=== PATIENT | male | born 1955 | race Caucasian/White ===

== ENCOUNTER 2017-07-18 13:51 | Inpatient (IN) | payer OTHER, MEDICARE ==
[~2017-07-18] VITALS: Ht 182.9 cm; Wt 95.3 kg
[~2017-07-18 13:51] MED LIST: DILAUDID4 MG PO; GOOD SENSE ASP325 MG PO; PERCOCET 325 MG1 TA3 PO; TESTOSTERO TOP; VITAMIN D32000 I1 PO; XARELTO20 MG PO; ZANTAC 150MG150 MG PO; ZOCOR 40MG TAB40 MG PO; ZYRTEC ALLERGY10 MG PO
--- NOTE | 2017-07-18 16:15 | ED GI/GU/ABDOMINAL COMPLAINT ---
History of Present Illness General Chief Complaint: Abdominal Pain/Flank Pain Stated Complaint: C/O ABD PAIN +N Source: patient Exam Limitations: no limitations Vital Signs & Intake/Output Vital Signs & Intake/Output Vital Signs Date Time Temp Pulse Resp B/P B/P Pulse O2 O2 Flow FiO2 Mean Ox Delivery Rate 07/18 1952 99.5 78 20 129/87 96 Room Air 07/18 1900 Room Air Room Air 07/18 1357 97.0 78 18 127/83 98 Room Air Room Air Allergies Coded Allergies: NO KNOWN ALLERGIES (08/07/15) Reconcile Medications Aspirin (Ecotrin*) 325 MG TABLET.DR 1 TAB PO DAILY HEART/BLOOD (Reported) Cetirizine HCl (Zyrtec) 10 MG CAPSULE 1 CAP PO DAILY SUPPLEMENT (Reported) Cholecalciferol (Vitamin D3) (Vitamin D) (Unknown Strength) TABLET (Unknown Dose) PO DAILY SUPPLEMENT (Reported) Ranitidine (Ranitidine HCl) (Unknown Strength) TABLET (Unknown Dose) PO DAILY GI (Reported) Simvastatin (Zocor*) (Unknown Strength) TABLET (Unknown Dose) PO QPM CHOLESTEROL (Reported) Testosterone (Testim) 50 MG/5 GRAM (1 %) GEL..GRAM. 1 ENOC TOP DAILY HRT ( Reported) Triage Note: PT TO ED WITH C/O MID ABD PAIN "A LITTLE BIT TO THE RIGHT SIDE". NAUSEA, NOT EATING SOLIDS, TAKING PO FLUIDS. Triage Nurses Notes Reviewed? yes Onset: Abrupt Duration: day(s): (5) Timing: recent history Location: right lower quadrant Radiation: no radiation Activities at Onset: none Associated Symptoms: abdominal pain, nausea/vomiting HPI: This is a 62-year-old male with history of previous stroke, left-sided deficit or with chief complaint of abdominal pain nausea and vomiting for the past 4-5 days, worse the last 2 days. He states he is unable to tolerate water. He has not been eating anything last movement was 5 days ago. No history of similar symptoms. Had a left inguinal hernia as a child, no other abdominal surgeries. Denies any fever or chills. (Noelle ROBLES,Annie) Past History Travel History Traveled to [place] past 21 day No Medical History Any Pertinent Medical History? see below for history Neurological: CVA EENT: NONE Cardiovascular: hyperlipidemia Respiratory: NONE Gastrointestinal: NONE Hepatic: NONE Renal: NONE Musculoskeletal: rheumatoid arthritis Psychiatric: NONE Endocrine: NONE Blood Disorders: NONE Cancer(s): NONE Surgical History Surgical History: LEFT INGUINAL HERNIA Psychosocial History Who do you live with Mother Services at Home None What is your primary language German Tobacco Use: Quit >30 days ago ETOH Use: occasional use Illicit Drug Use: denies illicit drug use Family History Hx Contributory? No (Annie Drake MD) Review of Systems Review of Systems Constitutional: Denies: chills, fever. EENTM: Reports: no symptoms. Respiratory: Denies: cough, short of breath. Cardiovascular: Denies: chest pain, palpitations. GI: Reports: abdominal pain, bloating, constipation, nausea, vomiting. Genitourinary: Denies: discharge, dysuria, frequency, hematuria. Musculoskeletal: Denies: back pain. Skin: Reports: no symptoms. Neurological/Psychological: Reports: no symptoms. Hematologic/Endocrine: Denies: bruising, bleeding, polyuria, polydipsia. Immunologic/Allergic: Denies: splenectomy. All Other Systems: Reviewed and Negative (Annie Drake MD) Physical Exam Physical Exam General Appearance: well developed/nourished, alert, awake, anxious, mild distress, moderate distress, obese Head: atraumatic, normal appearance Eyes: Bilateral: normal appearance, PERRL, EOMI. Ears, Nose, Throat, Mouth: hearing grossly normal, moist mucous membrane Neck: normal inspection, supple, full range of motion Respiratory: normal breath sounds, chest non-tender, no respiratory distress Cardiovascular: regular rate/rhythm, normal peripheral pulses Peripheral Pulses: 2+ radial (R), 2+ radial (L) Gastrointestinal: soft, DISTENDED, TENDER RLQ, RUQ, NO REBOUND OR GUARDING Back: normal inspection, normal range of motion Extremities: normal range of motion Neurologic/Psych: no motor/sensory deficits, awake, alert, oriented x 3 Core Measures ACS in differential dx? No Sepsis Present: No Sepsis Focused Exam Completed? No (Annie Drake MD) Progress Differential Diagnosis: appendicitis, bowel obstruction, colon cancer, diverticulitis, ureterolithiasis Plan of Care: Orders Procedure Date/time Status Nothing by Mouth 07/19 B Active Pathway - chart 07/18 1944 Active Code Status 07/18 1944 Active Patient Data 07/18 1936 Active Admit to inpatient 07/18 1935 Active NGT 07/18 1847 Active EKG 07/18 1847 Active Add-on Test (ER Only) 07/18 1648 Active Add-on Test (ER Only) 07/18 1632 Active URINALYSIS 07/18 1452 Complete PARTIAL THROMBOPLASTIN TIME 07/18 1452 Complete PROTHROMBIN TIME 07/18 1452 Complete LIPASE 07/18 1452 Complete ETHANOL 07/18 1452 Complete COMPREHENSIVE METABOLIC PANEL 07/18 1452 Complete CBC WITHOUT DIFFERENTIAL 07/18 145 Complete AMYLASE 07/18 1452 Complete VTE Mechanical Prophylaxis 07/18 UNK Active Vital Signs 07/18 UNK Active Intake & Output 07/18 UNK Active Current Medications Sig/Ute Start time Last Medication Dose Stop Time Status Admin Heparin Sodium 5,000 UNIT Q8 07/18 2199 UNVr (Porcine) Morphine Sulfate 4 MG Q4 HRS NEEDED PRN 07/18 1944 UNVr (Morphine) Ondansetron HCl 4 MG Q8P PRN 07/18 1944 UNVr (Zofran) Pantoprazole Sodium 40 MG DAILY 07/18 1944 UNVr 07/18 (Protonix) 2000 Sodium Chloride 1,000 ML .Q10H 07/18 1944 UNVr 07/18 (Normal Saline 0.9%) 1999 Laboratory Tests 07/18/17 1950: Urine Color YEL, Urine Clarity CLEAR, Urine pH 6.0, Ur Specific [place] 1.010, Urine Protein NEG, Urine Ketones 15 H, Urine Nitrite NEG, Urine Bilirubin NEG, Urine Urobilinogen 1.0, Ur Leukocyte Esterase NEG, Ur Microscopic EXAM NOT REQUIRED, Urine Hemoglobin NEG, Urine Glucose NEG 07/18/17 1630: Anion Gap 18 H, Estimated GFR > 60, BUN/Creatinine Ratio 14.0, Glucose 96, Calcium 10.2, Total Bilirubin 1.1, AST 35, ALT 63, Alkaline Phosphatase 61, Total Protein 7.3, Albumin 4.7, Globulin 2.6, Albumin/Globulin Ratio 1.8, Amylase 63, Lipase 64, PT 11.7, INR 1.12, APTT 27, CBC w Diff NO MAN DIFF REQ, RBC 5.30, MCV 93.5, MCH 30.9, RDW 13.9, MPV 8.9, Gran % 78.8 H, Lymphocytes % 11.6 L, Monocytes % 9.2, Eosinophils % 0.1, Basophils % 0.3, Absolute Granulocytes 8.7 H, Absolute Lymphocytes 1.3, Absolute Monocytes 1.0 H, Absolute Eosinophils 0, Absolute Basophils 0, PUBS MCHC 33.0, Serum Alcohol < 10.0 6:[address] SHOWS HIGH GRADE SBO, SURGERY PAGED, NGT ORDERED. 6:58 PM D/W DR ANGLIN AND SURGICAL PA, TO EVALUATE PATIENT IN ED. CT RESULTS D/W PATIENT. Diagnostic Imaging: Viewed by Me: CT Scan. Discussed w/RAD: CT Scan. Radiology Impression: PATIENT: MIRYAM MCCARTY PRESENT AGE: 62 PATIENT ACCOUNT NO: [id number] : 57 LOCATION: [facility] ORDERING PHYSICIAN: Annie Drake MD SERVICE DATE: 07/18/17 EXAM TYPE: CAT - CT ABD & PELVIS W IV CONTRAST EXAMINATION: CT ABDOMEN AND PELVIS WITH CONTRAST CLINICAL INFORMATION: Abdominal pain. Vomiting. COMPARISON: None TECHNIQUE: Multidetector volumetric imaging was performed of the abdomen and pelvis following IV administration of 95 mL of Optiray 320 intravenous contrast. Coronal and sagittal reformatted images performed at CT scanner DLP: 851.7 mGy- cm FINDINGS: LUNG BASES: Linear scarring at right lung base posteriorly. LIVER, GALLBLADDER, AND BILIARY TREE: The liver is normal in size, shape, and attenuation. No focal hepatic lesion or biliary ductal dilatation is present. Multiple small gallstones layering dependently in the gallbladder. No bile duct dilatation. No edema around the gallbladder. PANCREAS: Pancreas is mildly atrophic. No inflammation or mass. No pancreatic duct dilatation. SPLEEN: Small splenule at the anterior inferior splenic margin. ADRENAL GLANDS: Unremarkable. KIDNEYS AND URETERS: The kidneys are normal in size, shape, and attenuation. No hydronephrosis, hydroureter, or calculi seen. No perinephric stranding. BLADDER: Unremarkable. GASTROINTESTINAL TRACT: There is dilatation of the proximal small bowel loops and the distal small bowel loops are decompressed. This is a small bowel obstruction. The transition point is in the right upper quadrant. No edema of the bowel wall. The large bowel are decompressed. There are a few diverticula of the colon but no diverticulitis. ABDOMINAL WALL: No significant hernia is appreciated. LYMPH NODES: Normal. VASCULAR: Unremarkable. PELVIC VISCERA: Prostate measures 4.6 cm transverse. OSSEOUS STRUCTURES: Unremarkable. IMPRESSION: 1. High-grade small bowel obstruction with transition point right upper quadrant. 2. Cholelithiasis. DICTATED BY: Junior Tlaamantes MD DATE/TIME DICTATED:07/18/171754 PATTERN REPAIR PERSON:AUDREY DATE/TIME TRANSCRIBED:1754 CONFIDENTIAL, DO NOT COPY WITHOUT APPROPRIATE AUTHORIZATION. < Electronically signed in Other Vendor System> SIGNED BY: Junior Talamantes MD 1816 Initial ED EKG: none Hand-Off Endorsed To: Ac Reilly MD Endorsed Time: 1899 Pending: consult (SURGERY) (Annie Drake MD) Departure Departure Disposition: STILL A PATIENT Condition: Stable Clinical Impression Primary Impression: SBO (small bowel obstruction) Referrals: Matt ROBLES,Modesto Harrison (PCP/Family) Departure Forms: Customer Survey General Discharge Information (Annie Drake MD) Admission Note Spoke With: Judah ROBLES,Aj Leahy Documentation of Exam: Documentation of any treatments & extenuating circumstances including Concerns Regarding Discharge (functional status, medication knowledge or non-compliance, living conditions, etc.) that warrant an admission rather than observation: NGT surgical management NPO IVF IV analgesia IV antiemetic medication adjustment continuing care discharge planning (Ac Reilly MD)
[2017-07-18 17:02] LABS: ABSOLUTE BASOPHIL COUNT 0 /CUMM (0.0-0.2); ABSOLUTE EOSINOPHIL COUNT 0 /CUMM (0.0-0.7); ABSOLUTE GRANULOCYTE CT 8.7 /CUMM (1.4-6.5); ABSOLUTE LYMPH COUNT 1.3 /CUMM (1.2-3.4); BASOPHIL % 0.3 % (0.0-2.0); EOSINOPHIL % 0.1 % (0-5); GRANULOCYTE % 78.8 % (42.2-75.2); HEMATOCRIT 49.6 % (42-52); MEAN CORPUSCULAR HGB 30.9 PG (27.0-31.0); MEAN CORPUSCULAR VOLUME 93.5 FL (80.0-94.0); MEAN PLATELET VOLUME 8.9 FL (7.4-10.4); PLATELET COUNT 248 /CUMM (130-400); RBC DISTRIBUTION WIDTH 13.9 % (11.5-14.5); WHITE BLOOD CELL COUNT 11.1 /CUMM (4.8-10.8)
[2017-07-18 17:29] LABS: PT 11.7 SEC (9.4-12.5); PTT 27 SEC (25-37)
[2017-07-18] MEDS ORDERED: RANITIDINE HCL150 MG PO (17:34)
[2017-07-18] MEDS ORDERED: ASPIRIN EC325 M2 PO (17:34)
[2017-07-18] MEDS ORDERED: TESTIM5 GM TOP (17:35)
[2017-07-18] MEDS ORDERED: VITAMIN D1000 UNIT PO (17:35)
[2017-07-18] MEDS ORDERED: ZYRTEC10 M6 PO (17:35)
[2017-07-18] MEDS ORDERED: ZOCOR20 M1 PO (17:36)
--- NOTE | 2017-07-18 18:17 | CT SCAN REPORT ---
EXAMINATION: CT ABDOMEN AND PELVIS WITH CONTRAST CLINICAL INFORMATION: Abdominal pain. Vomiting. COMPARISON: None TECHNIQUE: Multidetector volumetric imaging was performed of the abdomen and pelvis following IV administration of 95 mL of Optiray 320 intravenous contrast. Coronal and sagittal reformatted images performed at CT scanner DLP: 851.7 mGy-cm FINDINGS: LUNG BASES: Linear scarring at right lung base posteriorly. LIVER, GALLBLADDER, AND BILIARY TREE: The liver is normal in size, shape, and attenuation. No focal hepatic lesion or biliary ductal dilatation is present. Multiple small gallstones layering dependently in the gallbladder. No bile duct dilatation. No edema around the gallbladder. PANCREAS: Pancreas is mildly atrophic. No inflammation or mass. No pancreatic duct dilatation. SPLEEN: Small splenule at the anterior inferior splenic margin. ADRENAL GLANDS: Unremarkable. KIDNEYS AND URETERS: The kidneys are normal in size, shape, and attenuation. No hydronephrosis, hydroureter, or calculi seen. No perinephric stranding. BLADDER: Unremarkable. GASTROINTESTINAL TRACT: There is dilatation of the proximal small bowel loops and the distal small bowel loops are decompressed. This is a small bowel obstruction. The transition point is in the right upper quadrant. No edema of the bowel wall. The large bowel are decompressed. There are a few diverticula of the colon but no diverticulitis. ABDOMINAL WALL: No significant hernia is appreciated. LYMPH NODES: Normal. VASCULAR: Unremarkable. PELVIC VISCERA: Prostate measures 4.6 cm transverse. OSSEOUS STRUCTURES: Unremarkable. IMPRESSION: 1. High-grade small bowel obstruction with transition point right upper quadrant. 2. Cholelithiasis.
--- NOTE | 2017-07-18 19:39 | Admission Core Measures ---
Acute Coronary Syndrome (CM) ACS Core Measures Acute Coronary Syndrome Diagnosis No Congestive Heart Failure (NEW) CHF Core Measures Congestive Heart Failure Diagnosis No Cerebrovascular Accident (NEW) CVA Core Measures CVA/TIA Diagnosis No Venous Thromboembolism VTE Core Giovanna (View Protocol) VTE Risk Factors Immobility No Mechanical VTE Prophylaxis d/t N/A MechProphylax Ordered No VTE Pharm Prophylaxis d/t NA PharmProphylax ordered Problem List As ranked by this Provider includes Assessment & Plan 1. SBO (small bowel obstruction) HOME MEDS Home Med List Aspirin (Ecotrin*) 325 MG TABLET.DR 1 TAB PO DAILY HEART/BLOOD (Reported) Cetirizine HCl (Zyrtec) 10 MG CAPSULE 1 CAP PO DAILY SUPPLEMENT (Reported) Cholecalciferol (Vitamin D3) (Vitamin D) (Unknown Strength) TABLET (Unknown Dose) PO DAILY SUPPLEMENT (Reported) Ranitidine (Ranitidine HCl) (Unknown Strength) TABLET (Unknown Dose) PO DAILY GI (Reported) Simvastatin (Zocor*) (Unknown Strength) TABLET (Unknown Dose) PO QPM CHOLESTEROL (Reported) Testosterone (Testim) 50 MG/5 GRAM (1 %) GEL..GRAM. 1 ENOC TOP DAILY HRT ( Reported)
--- NOTE | 2017-07-18 20:38 | History & Physical ---
Anthony Regan 07/18/172024: General Information and HPI MD Statement: I have seen and personally examined MIRYAM MCCARTY and documented this H&P. The patient is a 62 year old M who presented with a patient stated chief complaint of [abdominal pain]. Source of Information: patient, family Exam Limitations: no limitations History of Present Illness: Mr. 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 He denies fever chills at home and states that prior to the onset of the symptoms has never complained of abdominal pain to this severity. CAT scan taken today demonstrates high-grade small bowel obstruction in right upper quadrant with no evidence of free air. He has no urinary complaints and his last bowel movement was yesterday and was loose. Allergies/Medications Allergies: Coded Allergies: NO KNOWN ALLERGIES (08/07/15) Home Med list Aspirin (Ecotrin*) 325 MG TABLET.DR 1 TAB PO DAILY HEART/BLOOD (Reported) Cetirizine HCl (Zyrtec) 10 MG CAPSULE 1 CAP PO DAILY SUPPLEMENT (Reported) Cholecalciferol (Vitamin D3) (Vitamin D) (Unknown Strength) TABLET (Unknown Dose) PO DAILY SUPPLEMENT (Reported) Ranitidine (Ranitidine HCl) (Unknown Strength) TABLET (Unknown Dose) PO DAILY GI (Reported) Simvastatin (Zocor*) (Unknown Strength) TABLET (Unknown Dose) PO QPM CHOLESTEROL (Reported) Testosterone (Testim) 50 MG/5 GRAM (1 %) GEL..GRAM. 1 ENOC TOP DAILY HRT ( Reported) Past History Travel History Traveled to [place] past 21 day No Medical History Neurological: CVA EENT: NONE Cardiovascular: hyperlipidemia Respiratory: NONE Gastrointestinal: NONE Hepatic: NONE Renal: NONE Musculoskeletal: rheumatoid arthritis Psychiatric: NONE Endocrine: NONE Blood Disorders: NONE Cancer(s): NONE Surgical History Surgical History: LEFT INGUINAL HERNIA Past Family/Social History Psychosocial History Services at Home: None ETOH Use: occasional use Illicit Drug Use: denies illicit drug use Review of Systems Review of Systems Constitutional: Denies: no symptoms, see HPI, chills, diaphoresis, fever, malaise, weakness, unexplained weight loss. Exam & Diagnostic Data Last 24 Hrs of Vital Signs/I&O Vital Signs Date Time Temp Pulse Resp B/P B/P Pulse O2 O2 Flow FiO2 Mean Ox Delivery Rate 07/18 1952 99.5 78 20 129/87 96 Room Air 07/18 1900 Room Air Room Air 07/18 1357 97.0 78 18 127/83 98 Room Air Room Air Intake & Output 07/18 1600 07/18 0800 07/18 0000 Intake Total Output Total Balance Patient 210 lb Weight Weight Reported by Patient Measurement Method Physical Exam General Appearance Alert, Oriented X3, Cooperative HEENT PERRLA Cardiovascular Regular Rate, Normal S1, Normal S2 Lungs Clear to Auscultation, Normal Air Movement Abdomen abdomen softly distended, tenderness to right upper quadrant to palpation, no evidence of peritonitis, no guarding to palpation. Last 24 Hrs of Labs/Candelario: Laboratory Tests 07/18/17 1950: Urine Color YEL, Urine Clarity CLEAR, Urine pH 6.0, Ur Specific [place] 1.010, Urine Protein NEG, Urine Ketones 15 H, Urine Nitrite NEG, Urine Bilirubin NEG, Urine Urobilinogen 1.0, Ur Leukocyte Esterase NEG, Ur Microscopic EXAM NOT REQUIRED, Urine Hemoglobin NEG, Urine Glucose NEG 07/18/17 1630: Anion Gap 18 H, Estimated GFR > 60, BUN/Creatinine Ratio 14.0, Glucose 96, Calcium 10.2, Total Bilirubin 1.1, AST 35, ALT 63, Alkaline Phosphatase 61, Total Protein 7.3, Albumin 4.7, Globulin 2.6, Albumin/Globulin Ratio 1.8, Amylase 63, Lipase 64, PT 11.7, INR 1.12, APTT 27, CBC w Diff NO MAN DIFF REQ, RBC 5.30, MCV 93.5, MCH 30.9, RDW 13.9, MPV 8.9, Gran % 78.8 H, Lymphocytes % 11.6 L, Monocytes % 9.2, Eosinophils % 0.1, Basophils % 0.3, Absolute Granulocytes 8.7 H, Absolute Lymphocytes 1.3, Absolute Monocytes 1.0 H, Absolute Eosinophils 0, Absolute Basophils 0, PUBS MCHC 33.0, Serum Alcohol < 10.0 Diagnostic Data Other Results SERVICE DATE: 07/18/17-163 EXAM TYPE: CAT - CT ABD & PELVIS W IV CONTRAST EXAMINATION: CT ABDOMEN AND PELVIS WITH CONTRAST CLINICAL INFORMATION: Abdominal pain. Vomiting. COMPARISON: None TECHNIQUE: Multidetector volumetric imaging was performed of the abdomen and pelvis following IV administration of 95 mL of Optiray 320 intravenous contrast. Coronal and sagittal reformatted images performed at CT scanner DLP: 851.7 mGy-cm FINDINGS: LUNG BASES: Linear scarring at right lung base posteriorly. LIVER, GALLBLADDER, AND BILIARY TREE: The liver is normal in size, shape, and attenuation. No focal hepatic lesion or biliary ductal dilatation is present. Multiple small gallstones layering dependently in the gallbladder. No bile duct dilatation. No edema around the gallbladder. PANCREAS: Pancreas is mildly atrophic. No inflammation or mass. No pancreatic duct dilatation. SPLEEN: Small splenule at the anterior inferior splenic margin. ADRENAL GLANDS: Unremarkable. KIDNEYS AND URETERS: The kidneys are normal in size, shape, and attenuation. No hydronephrosis, hydroureter, or calculi seen. No perinephric stranding. BLADDER: Unremarkable. GASTROINTESTINAL TRACT: There is dilatation of the proximal small bowel loops and the distal small bowel loops are decompressed. This is a small bowel obstruction. The transition point is in the right upper quadrant. No edema of the bowel wall. The large bowel are decompressed. There are a few diverticula of the colon but no diverticulitis. ABDOMINAL WALL: No significant hernia is appreciated. LYMPH NODES: Normal. VASCULAR: Unremarkable. PELVIC VISCERA: Prostate measures 4.6 cm transverse. OSSEOUS STRUCTURES: Unremarkable. IMPRESSION: 1. High-grade small bowel obstruction with transition point right upper quadrant. 2. Cholelithiasis. DICTATED BY: Junior Talamantes MD DATE/TIME DICTATED:07/18/171754 LACE AND TEXTILES RESTORER:AUDREY DATE/TIME TRANSCRIBED:07/18/171754 Assessment/Plan Assessment: Mr. Mccarty is a 62-year-old male with a three-day history of worsening abdominal pain bloating nausea and vomiting with CAT scan demonstrating high- grade small bowel obstruction. This case was discussed with Dr. So. Plan Admit to general surgery IV fluids, nothing by mouth NG tube placement now Heparin subcutaneous for DVT prophylaxis with Alps Serial abdominal exams IV PPI Dr. So will see the patient in a.m. If the patient conditions worsen he may require to be taken to the OR suite for exploration As Ranked By This Provider Problem List: 1. SBO (small bowel obstruction) Core Measures/Misc (03/25) Acute Coronary Syndrome ACS Diagnosis: No Congestive Heart Failure Congestive Heart Failure Diagnosis No Cerebrovascular Accident CVA/TIA Diagnosis: No VTE (View Protocol) VTE Risk Factors Immobility No Mechanical VTE Prophylaxis d/t N/A MechProphylax Ordered No VTE Pharm Prophylaxis d/t NA PharmProphylax ordered Sepsis (View protocol) Sepsis Present: No Aj So MD 07/19/17 1133: Attending MD Review Statement Attending Statement Attending MD Statement: examined this patient, discuss w/resident/PA/[employer] W[employer]ER, reviewed images Attending Assessment/Plan: PATIENT WITH NEW SBO WITHOUT PRIOR SURGERY TO ATTRIBUTE TO ADHESIVE DISEASE. PLAN NGT IVF AND SERIAL EXAMINATION. PLAN OPERATIVE INTERVENTION PENDING CLINICAL COURSE.
--- NOTE | 2017-07-18 20:43 | RADIOLOGY REPORT ---
EXAMINATION: CHEST 1 VIEW CLINICAL INFORMATION: Enteric tube placement. COMPARISON: Same day abdominal and pelvic CT. TECHNIQUE: An AP view of the chest is provided. FINDINGS: The cardiac silhouette is not enlarged. An enteric tube is in place. The tip terminates within the left upper quadrant, likely within the stomach. The mediastinal and hilar contours are unremarkable. There are neither pleural effusions nor pneumothoraces. There is atelectasis at the right lung base. The osseous structures are unremarkable. IMPRESSION: Enteric tube in place. Right lower lobe atelectasis.
[2017-07-19 00:18] VITALS: BP 130/86
[2017-07-19 06:15] VITALS: BP 126/82
--- NOTE | 2017-07-19 07:54 | PN- General Surgery ---
See Addendum Subjective Subjective: Pt in bed, complains of mild abdominal pain but hasnt asked for any medications since he was in the ED. Some nausea, no vomiting, NGT in place. Complains of thgroat discomfort from NGT. Denies flatus/BM. Denies CP/SOB. Voiding Objective Vital Signs and I&Os Vital Signs Date Time Temp Pulse Resp B/P B/P Pulse O2 O2 Flow FiO2 Mean Ox Delivery Rate 07/19 0615 97.4 71 20 126/82 93 Room Air 07/19 0018 98.8 77 22 130/86 96 Room Air 07/18 2254 96.8 94 18 128/74 97 Room Air 07/18 2127 97.2 95 18 125/75 94 Room Air 07/18 1953 99.5 78 20 129/87 96 Room Air 07/18 1900 Room Air Room Air 07/18 1357 97.0 78 18 127/83 98 Room Air Room Air Intake & Output 07/19 0800 07/19 0000 07/18 1600 07/18 0800 07/18 0000 07/17 1600 Intake Total 1200 Output Total 275 700 Balance -275 500 Intake, IV 1000 Intake, Oral 200 Output, 400 Gastric Drainage Output, Urine 275 300 Patient 210 lb 210 lb Weight Weight Reported by Patient Reported by Patient Measurement Method Physical Exam: gen- NAD, AAx3 resp- CTAB cardio- RRR abd- ND, +BS, soft, NT Results Last 48 Hours of Labs: Laboratory Tests 07/18 07/18 1950 1630 Chemistry Sodium (137 - 145 mmol/L) 138 Potassium (3.5 - 5.1 mmol/L) 4.2 Chloride (98 - 107 mmol/L) 95 L Carbon Dioxide (22 - 30 mmol/L) 26 Anion Gap (5 - 16) 18 H BUN (9 - 20 mg/dL) 14 Creatinine (0.7 - 1.2 mg/dL) 1.0 Estimated GFR (>60 ml/min) > 60 BUN/Creatinine Ratio (7 - 25 %) 14.0 Glucose (65 - 99 mg/dL) 96 Calcium (8.4 - 10.2 mg/dL) 10.2 Total Bilirubin (0.2 - 1.3 mg/dL) 1.1 AST (17 - 59 U/L) 35 ALT (21 - 72 U/L) 63 Alkaline Phosphatase (< 127 U/L) 61 Total Protein (6.3 - 8.2 g/dL) 7.3 Albumin (3.5 - 5.0 g/dL) 4.7 Globulin (1.9 - 4.2 gm/dL) 2.6 Albumin/Globulin Ratio (1.1 - 2.2 %) 1.8 Amylase (30 - 110 U/L) 63 Lipase (23 - 300 U/L) 64 Coagulation PT (9.4 - 12.5 SEC) 11.7 INR (0.90 - 1.17) 1.12 APTT (25 - 37 SEC) 27 Hematology CBC w Diff NO MAN DIFF REQ WBC (4.8 - 10.8 /CUMM) 11.1 H RBC (4.70 - 6.10 /CUMM) 5.30 Hgb (14.0 - 18.0 G/DL) 16.4 Hct (42 - 52 %) 49.6 MCV (80.0 - 94.0 FL) 93.5 MCH (27.0 - 31.0 PG) 30.9 RDW (11.5 - 14.5 %) 13.9 Plt Count (130 - 400 /CUMM) 248 MPV (7.4 - 10.4 FL) 8.9 Gran % (42.2 - 75.2 %) 78.8 H Lymphocytes % (20.5 - 51.1 %) 11.6 L Monocytes % (1.7 - 9.3 %) 9.2 Eosinophils % (0 - 5 %) 0.1 Basophils % (0.0 - 2.0 %) 0.3 Absolute Granulocytes (1.4 - 6.5 /CUMM) 8.7 H Absolute Lymphocytes (1.2 - 3.4 /CUMM) 1.3 Absolute Monocytes (0.10 - 0.60 /CUMM) 1.0 H Absolute Eosinophils (0.0 - 0.7 /CUMM) 0 Absolute Basophils (0.0 - 0.2 /CUMM) 0 PUBS MCHC (33.0 - 37.0 G/DL) 33.0 Toxicology Serum Alcohol (<10 MG/DL) < 10.0 Urines Urine Color (YEL,AMB,STR) YEL Urine Clarity (CLEAR) CLEAR Urine pH (5.0 - 8.0) 6.0 Ur Specific [place] (1.001 - 1.035) 1.010 Urine Protein (NEG,<30 MG/DL) NEG Urine Ketones (NEG) 15 H Urine Nitrite (NEG) NEG Urine Bilirubin (NEG) NEG Urine Urobilinogen (0.1 - 1.0 EU/dl) 1.0 Ur Leukocyte Esterase (NEG) NEG Ur Microscopic EXAM NOT REQUIRED Urine Hemoglobin (NEG) NEG Urine Glucose (N MG/DL) NEG Assessment/Plan Assessment/Plan 62yo M with SBO, awaiting return of bowel function Will increase IVF to 125ml/hr Cont antiemetics and pain medication as need DVT ppx- SQ heparin and ALPS COnt NGT NPO with ice chips for oral comfort IV PPI Encourage ambulation Core Measures Venous Thromboembolism VTE Risk Factors Immobility No Mechanical VTE Prophylaxis d/t N/A MechProphylax Ordered No VTE Pharm Prophylaxis d/t NA PharmProphylax ordered
[2017-07-19 15:10] VITALS: BP 120/78
[2017-07-19 21:54] VITALS: BP 120/88
[2017-07-20 07:06] VITALS: BP 116/82
--- NOTE | 2017-07-20 09:42 | RADIOLOGY REPORT ---
EXAMINATION: XR ABDOMEN MULTIPLE VIEWS CLINICAL INDICATION: Small bowel obstruction. COMPARISON: CT abdomen pelvis dated 07/18/2017 was reviewed. TECHNIQUE: 4 views of the abdomen. FINDINGS: There is an enteric tube overlying the stomach. Again seen are multiple dilated loops of small bowel. On the erect view several air-fluid levels are demonstrated. No free air is observed. IMPRESSION: Multiple dilated small bowel loops with air-fluid levels consistent with known small bowel obstruction.
--- NOTE | 2017-07-20 10:50 | PN- General Surgery ---
Subjective Subjective: No overnight improvement reported. Patient still continues to c/o abdominal pain , diffuse. Has NGT in place, finds it uncomfortable but notes decrease in nausea. Denies flatus. Has not been OOB today. Denies chest pain, shortness of breath and difficulty breathing. Objective Vital Signs and I&Os Vital Signs Date Time Temp Pulse Resp B/P B/P Pulse O2 O2 Flow FiO2 Mean Ox Delivery Rate 07/20 0706 98.2 72 18 116/82 93 Room Air 07/19 2154 98.4 64 18 120/88 95 Room Air 07/19 1510 98.5 70 18 120/78 95 Room Air Intake & Output 07/20 1600 07/20 0800 07/20 0000 07/19 1600 07/19 0800 07/19 0000 Intake Total 2817 403 5330 800 1200 Output Total 775 1075 500 575 700 Balance 225 -575 1090 225 500 Intake, IV 1000 500 951 277 5653 Intake, Oral 0 0 840 200 Number 0 0 Bowel Movements Output, 375 675 300 400 Gastric Drainage Output, Urine 400 400 500 275 300 Patient 210 lb Weight Weight Reported by Patient Measurement Method Physical Exam: General: Alert and oriented x3, no acute distress Cardiac: RRR, s1s2 Pulm: CTA bilaterally, non-labored respiratory effort Abdomen: Distended, softly. Diffuse tenderness with palpation. +bs auscultated, no passage of flatus Extremities: Left sided weakness, not new. Moves right side, distal sensations intact. Skin warm and well perfused. DP pulses palpable. Calves soft, non- tender bialterally Assessment/Plan Assessment/Plan This is a 62 year old male, hospital day 2, admitted for sbo. Has been npo with ngt. No improvement noted. Multiview reviewed, still shows sbo. -Continue npo, ngt -Continue IV hydration -Plan for OR this afternoon for diagnostic laparoscopy with lysis of adhesions -Discussed with Dr. So and patient Core Measures Venous Thromboembolism VTE Risk Factors Immobility No Mechanical VTE Prophylaxis d/t N/A MechProphylax Ordered No VTE Pharm Prophylaxis d/t NA PharmProphylax ordered
--- NOTE | 2017-07-20 14:53 | Operative Report ---
Operative/Inv Procedure Report Surgery Date: 07/20/17 Name of Procedure: Laparoscopic lysis of adhesions Pre-Operative Diagnosis: Intestinal obstruction Post-Operative Diagnosis: Same Estimated Blood Loss: scant Surgeon/Tactical Deception Plans Officer: Judah ROBLES,Aj Leahy Anesthesia: general endotracheal tube Operative Indication: 62-year-old male resents with intestinal obstruction. He has no history of prior abdominal surgery Operative/Procedure Note Note: Patient brought to the abdomen supine. General anesthesia was obtained and his abdomen was prepped and draped. Skin above the umbilicus local anesthesia transverse incision made sharply. We dissected out the fascia and grasp it with Avni's. Fascia was incised sharply and stay sutures placed. A blunt Willoughby port was placed. Pneumoperitoneum was achieved. 2, 5 mm ports were placed in the suprapubic region and left lower quadrant after local anesthesia and under direct vision. We began by finding the cecum. The terminal ileal loops were normal in caliber. There is obvious markedly distended proximal small bowel loops. We ran the small bowel from the terminal ileum proximally. We came to the area where there is inflamed bowel that was mildly dilated but no discrete transition point. It is difficult the bowel further this way due to the distention of the intestine. We therefore went superiorly and identified the omentum. Reflected it superiorly to find the ligament of Treitz. In doing so we found an adhesive band of omentum to the retroperitoneum. This band was divided with cautery. We then identified the ligament of Treitz and ran the small bowel distally. Papillary through, there was a discrete transition site seen. There is what appeared to be bandlike compression had been released. There is no intraluminal mass. I ran the small bowel once more from distal to proximal and found the same transition point. At this point we concluded the operation. Ports removed. The fascia was closed with 0 Vicryl suture. Skin incisions were closed with 4-0 Vicryl. Steri-Strips and sterile dressing applied. Sponge needle counts are correct Findings: Solitary adhesive band CC: Matt ROBLES,Modesto Harrison
[2017-07-20 17:20] VITALS: BP 126/82
--- NOTE | 2017-07-20 17:33 | PN- Student ---
Yunier Owens 07/20/17 1722: Subjective Subjective: Pt is a 62yo male post op day 0 s/p BROOKLYNN r/t SBO. He does not have any complaints at this time and states his pain is 0/10 at this time although he states he has minimal throat discomfort 2/2 extubation. No BM/ No Flatus/ No urination at this time. Pt denies: H/A, vision changes, SOB, chest pain, N/V/D, paresthesias (hx of L sided HTN stroke) or syncope. Pt does not have any questions or complaints at this time. Objective Objective: GENERAL: Pt lying supine in bed comfortably. NG tube with low wall suction in place. IVF in place. Antonio catheter removed in OR. RESP: Fair respiratory effort- PT complaining of sore throat r/t extubation. CTAB CARDIO: RRR, no M/R/G, S1 and S2 audible. ABD: Dressing clean, dry and intact. Soft, mild tenderness on palpation throughout. Diminished active bowel sounds heard in all 4 quadrants. MUSC: Denies pain/paresthesias. No edema noted. NEURO: Pt is playful during exam but A+Ox4. Making moravian references throughout the interview, pt is optomistic of his future care. Results Results: Laboratory Tests 07/20/17 0753: Anion Gap 16, Estimated GFR > 60, BUN/Creatinine Ratio 15.6 07/18/17 1950: Urine Color YEL, Urine Clarity CLEAR, Urine pH 6.0, Ur Specific [place] 1.010, Urine Protein NEG, Urine Ketones 15 H, Urine Nitrite NEG, Urine Bilirubin NEG, Urine Urobilinogen 1.0, Ur Leukocyte Esterase NEG, Ur Microscopic EXAM NOT REQUIRED, Urine Hemoglobin NEG, Urine Glucose NEG 07/18/17 1630: Anion Gap 18 H, Estimated GFR > 60, BUN/Creatinine Ratio 14.0, Glucose 96, Calcium 10.2, Total Bilirubin 1.1, AST 35, ALT 63, Alkaline Phosphatase 61, Total Protein 7.3, Albumin 4.7, Globulin 2.6, Albumin/Globulin Ratio 1.8, Amylase 63, Lipase 64, PT 11.7, INR 1.12, APTT 27, CBC w Diff NO MAN DIFF REQ, RBC 5.30, MCV 93.5, MCH 30.9, RDW 13.9, MPV 8.9, Gran % 78.8 H, Lymphocytes % 11.6 L, Monocytes % 9.2, Eosinophils % 0.1, Basophils % 0.3, Absolute Granulocytes 8.7 H, Absolute Lymphocytes 1.3, Absolute Monocytes 1.0 H, Absolute Eosinophils 0, Absolute Basophils 0, PUBS MCHC 33.0, Serum Alcohol < 10.0 Microbiology 07/20 1345 URINE ROUT: Urine Culture - RECD Assessment/Plan Assessment: Ted is a 62yo M post op day 0 s/p BROOK[place]NN r/t SBO. He is recovering well from his procedure and is only complaining of mild throat pain likely 2/2 extuabation. Incision sites are clean and dry and show no signs of infection or irritation. He is currenlty on low wall suction via NG tube and IVF are in place. Plan: Continue pain medications as ordered. Initiate clear liquid diet. Continue OP meds as ordered for hyperlipidemia/RA/HTN stroke. PT consult- encourage mild ambulation that is possible with physical restrictions 2/2 stroke. Re-evaluate pt in am. Denise Finch 07/20/171818: Assessment/Plan Plan: agree with PA-S note to remain npo / ngt / ivf overnight tino-op unasyn x 2 doses PT eval f/u am labs hep sc - dvt ppx protonix - gi ppx chloraseptic spray prn sore throat will d/w
[2017-07-20 22:27] VITALS: BP 108/72
[2017-07-21 06:21] VITALS: BP 134/88
--- NOTE | 2017-07-21 10:04 | PN- General Surgery ---
See Addendum Subjective Subjective: Patient feeling well, pain is controlled, no nausea no vomiting. He is passing large amounts of gas. He would like his NG tube removed. He he states "I'm starving" Objective Vital Signs and I&Os Vital Signs Date Time Temp Pulse Resp B/P B/P Pulse O2 O2 Flow FiO2 Mean Ox Delivery Rate 07/21 0621 97.7 83 20 134/88 94 07/20 2227 98.9 68 20 108/72 93 Room Air 07/20 1720 99.3 74 18 126/82 94 Room Air Intake & Output 07/21 1600 07/21 0800 07/21 0000 07/20 1600 07/20 0800 07/20 0000 Intake Total 600 440 3538 500 Output Total 1400 350 225 297 2123 Balance -600 -350 -100 225 -575 Intake, IV 747 342 9187 500 Intake, Oral 0 0 Number 0 0 Bowel Movements Output, 250 250 375 675 Gastric Drainage Output, Urine 1150 350 450 400 400 Physical Exam: Well-developed well-nourished no apparent distress. HEENT: Atraumatic, extraocular motion intact. NG tube partially dislodged after patient sneezed several times, last recorded output was 250 mL of bilious material Neck: Supple, no lymphadenopathy Respiratory: No respiratory distress Abdomen: Soft, minimal tenderness, dressings with scant amount of serosanguineous drainage Positive bowel sounds Extremities: No edema, no calf pain Neuro: Alert and oriented x3 Psych: Mood affect normal, normal memory normal judgment. Skin: Warm and dry, no rash on exposed skin Results Last 48 Hours of Labs: Laboratory Tests 07/20 0753 Chemistry Sodium (137 - 145 mmol/L) 142 Potassium (3.5 - 5.1 mmol/L) 3.9 Chloride (98 - 107 mmol/L) 102 Carbon Dioxide (22 - 30 mmol/L) 25 Anion Gap (5 - 16) 16 BUN (9 - 20 mg/dL) 14 Creatinine (0.7 - 1.2 mg/dL) 0.9 Estimated GFR (>60 ml/min) > 60 BUN/Creatinine Ratio (7 - 25 %) 15.6 Assessment/Plan Assessment/Plan Postop day number 1 status post lysis of adhesions for small bowel obstruction DC NG tube, removed by myself as it was already partially dislodged start clears Follow labs oob heparin sq for DVT ppx DC IVF when tolerating adequate PO Core Measures Venous Thromboembolism VTE Risk Factors Immobility No Mechanical VTE Prophylaxis d/t N/A MechProphylax Ordered No VTE Pharm Prophylaxis d/t NA PharmProphylax ordered
[2017-07-21 15:00] VITALS: BP 130/80
[2017-07-21 23:54] VITALS: BP 100/60
[2017-07-22 08:08] VITALS: BP 106/64
[2017-07-22 08:26] LABS: ABSOLUTE BASOPHIL COUNT 0 /CUMM (0.0-0.2); ABSOLUTE EOSINOPHIL COUNT 0 /CUMM (0.0-0.7); ABSOLUTE GRANULOCYTE CT 5.5 /CUMM (1.4-6.5); ABSOLUTE LYMPH COUNT 1.3 /CUMM (1.2-3.4); ABSOLUTE MONOCYTE COUNT 0.9 /CUMM (0.10-0.60); BASOPHIL % 0.3 % (0.0-2.0); EOSINOPHIL % 0.6 % (0-5); GRANULOCYTE % 70.8 % (42.2-75.2); MEAN CORPUSCULAR HGB 31.4 PG (27.0-31.0); MEAN CORPUSCULAR HGB CONC 34.1 G/DL (33.0-37.0); MEAN CORPUSCULAR VOLUME 92.1 FL (80.0-94.0); MEAN PLATELET VOLUME 8.9 FL (7.4-10.4); PLATELET COUNT 209 /CUMM (130-400); RBC DISTRIBUTION WIDTH 13.6 % (11.5-14.5); RED BLOOD CELL CT 4.21 /CUMM (4.70-6.10); WHITE BLOOD CELL COUNT 7.8 /CUMM (4.8-10.8)
[2017-07-22 09:34] LABS: HEMATOCRIT 38.8 % (42-52)
--- NOTE | 2017-07-22 10:52 | PN- General Surgery ---
See Addendum Subjective Subjective: No acute overnight events. States that he still has some abominal discomfort but has been tolerating clears. States that he continues to pass flatus. Has not had a bm. He has hunger. Is requesting vitamins and eggs. Denies chest pain, shortness of breath and difficulty breathing. Denies nausea and vomitting. Would like to get OOB to ambulate. C/O Alps on lle, states he will refuse them, only wants to wear it on right. Objective Vital Signs and I&Os Vital Signs Date Time Temp Pulse Resp B/P B/P Pulse O2 O2 Flow FiO2 Mean Ox Delivery Rate 07/22 0808 98.7 68 18 106/64 92 Room Air 07/21 2354 99.6 78 18 100/60 91 Room Air 07/21 1500 98.3 72 20 130/80 94 Room Air Intake & Output 07/22 1600 07/22 0800 07/22 0000 07/21 1600 07/21 0800 07/21 0000 Intake Total 720 1200 800 Output Total 8310 443 2770 350 Balance -455 -800 1200 -600 -350 Intake, IV 300 800 Intake, Oral 720 900 Number 0 Bowel Movements Output, 250 Gastric Drainage Output, Urine 6462 373 2885 350 Patient 210 lb Weight Physical Exam: General: Alert and oriented x3, no acute distress Cards: RRR, s1s2 Pulm: CTA bilaterally ABD: Softly distended, dressing dry and intact. No tino-incisional erythema. Bowel sounds positive. Extremities: Distal sensation intact. 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 Skin warm and well perfused. Left knee reported to be painful with ALPS. No effusion, redness or warmth. Bilateral calves soft and non-tender. Assessment/Plan Assessment/Plan This is a 62 year old male, POD 2 s/p lap BROOK[place]NN. PMH significant for hld, dvt, and a cva with left sided weakness. -Continue clear liquids for now, will likely advance to full liquid later today, will advance slowly -Will transition to po pain meds when diet advanced -Continue ALPS and sub q hep for dvt ppx. Pt refusing L sided ALP, ambulation encouraged -Incentive spriometry encouraged -IV fluids have been dc'd -Will discuss with Dr. Dietrich/Judah Core Measures Venous Thromboembolism VTE Risk Factors Immobility No Mechanical VTE Prophylaxis d/t N/A MechProphylax Ordered No VTE Pharm Prophylaxis d/t NA PharmProphylax ordered
[2017-07-22 15:15] VITALS: BP 126/68
[2017-07-22 22:38] VITALS: BP 114/68
[2017-07-23 05:56] VITALS: BP 122/82
--- NOTE | 2017-07-23 08:33 | PN- General Surgery ---
See Addendum Subjective Subjective: Tolerating low fiber diet. Denies nausea. Passing flatus. Reportedly small bm yesterday. He is insisting on iv morphine over percocet pills until he passes another bm. Objective Vital Signs and I&Os Vital Signs Date Time Temp Pulse Resp B/P B/P Pulse O2 O2 Flow FiO2 Mean Ox Delivery Rate 07/23 0556 97.4 66 20 122/82 96 Room Air 07/22 2238 98.6 76 20 114/68 96 Room Air 07/22 1515 98.1 84 20 126/68 92 Room Air Intake & Output 07/23 1600 07/23 0800 07/23 0000 07/22 1600 07/22 0800 07/22 0000 Intake Total 960 480 800 720 Output Total 9950 815 1169 800 Balance -640 480 150 -455 -800 Intake, Oral 960 480 800 720 Output, Urine 3763 786 4850 800 Physical Exam: General - alert & oriented x 3. comfortable. no acute distress. Lungs - clear. Cardiac - s1s2. reg. Abdomen - soft. bandaids removed. steri strips intact. expected tino-incisional tenderness. Extremities - warm bilaterally. venodyne in place rle. calves soft and nontender. Current Medications: Current Medications Sig/Ute Start time Last Medication Dose Route Stop Time Status Admin Acetaminophen 325 MG Q4P PRN 07/23 06 AC PO Famotidine 20 MG BID 07/23 1000 AC PO Heparin Sodium 5,000 UNIT Q8 07/20 2200 AC 07/23 (Porcine) SC 0554 Morphine Sulfate 2 MG Q4-6 PRN PRN 07/23 0815 AC 07/23 IV 0819 Morphine Sulfate 2 MG Q4-6 PRN PRN 07/20 1530 DC IV Morphine Sulfate 4 MG Q4-6 PRN PRN 07/20 1530 DC 07/23 IV 0356 Ondansetron HCl 4 MG Q6-PRN PRN 07/23 0815 AC IV Ondansetron HCl 4 MG Q8P PRN 07/20 1530 DC IV Oxycodone/ 1 TAB Q4P PRN 07/23 06 AC Acetaminophen PO Oxycodone/ 2 TAB Q4P PRN 07/23 0600 AC Acetaminophen PO Pantoprazole Sodium 40 MG DAILY 07/21 1000 DC 07/22 IV 0855 Phenol 2 SPRAY Q2P PRN 07/20 1830 DC 07/21 EXT 0423 Results Last 48 Hours of Labs: Laboratory Tests 07/22 0725 Chemistry Sodium (137 - 145 mmol/L) 136 L Potassium (3.5 - 5.1 mmol/L) 3.6 Chloride (98 - 107 mmol/L) 99 Carbon Dioxide (22 - 30 mmol/L) 27 Anion Gap (5 - 16) 11 BUN (9 - 20 mg/dL) 11 Creatinine (0.7 - 1.2 mg/dL) 0.9 Estimated GFR (>60 ml/min) > 60 BUN/Creatinine Ratio (7 - 25 %) 12.2 Magnesium (1.6 - 2.3 mg/dL) 2.2 Hematology CBC w Diff NO MAN DIFF REQ WBC (4.8 - 10.8 /CUMM) 7.8 RBC (4.70 - 6.10 /CUMM) 4.21 L Hgb (14.0 - 18.0 G/DL) 13.2 L Hct (42 - 52 %) 38.8 L MCV (80.0 - 94.0 FL) 92.1 MCH (27.0 - 31.0 PG) 31.4 H RDW (11.5 - 14.5 %) 13.6 Plt Count (130 - 400 /CUMM) 209 MPV (7.4 - 10.4 FL) 8.9 Gran % (42.2 - 75.2 %) 70.8 Lymphocytes % (20.5 - 51.1 %) 16.2 L Monocytes % (1.7 - 9.3 %) 12.1 H Eosinophils % (0 - 5 %) 0.6 Basophils % (0.0 - 2.0 %) 0.3 Absolute Granulocytes (1.4 - 6.5 /CUMM) 5.5 Absolute Lymphocytes (1.2 - 3.4 /CUMM) 1.3 Absolute Monocytes (0.10 - 0.60 /CUMM) 0.9 H Absolute Eosinophils (0.0 - 0.7 /CUMM) 0 Absolute Basophils (0.0 - 0.2 /CUMM) 0 PUBS MCHC (33.0 - 37.0 G/DL) 34.1 Assessment/Plan Assessment/Plan This is a 62 year old male with hx hld, dvt, hx dva with left sided weakness, now POD#3 s/p lap lysis of adhesions for sbo currently tolerating low fiber diet transition iv morphine to percocet add colace bid hep sc - dvt ppx d/c planning, ?home today will d/w Core Measures Venous Thromboembolism VTE Risk Factors Immobility No Mechanical VTE Prophylaxis d/t N/A MechProphylax Ordered No VTE Pharm Prophylaxis d/t NA PharmProphylax ordered
--- NOTE | 2017-07-23 10:22 | Patient Discharge Instructions ---
Discharge Instructions General Discharge Information You were seen/treated for: Intestinal obstruction You had these procedures: Surgery Date: 07/20/17 Name of Procedure: Laparoscopic lysis of adhesions Watch for these problems: fever>101.3, increased pain, recurrent nausea/vomiting, redness/swelling/ drainage, dizziness, shortness of breath, chest pains No bath, but you may shower: Yes Other wound care: leave white steri strips in place. ok to shower. no bathing/pools. keep incisions clean & dry. Diet Continue normal diet: Yes Recommended Diet: Low Residue Additional DIET Information: NO DRINKING ALCOHOL, ESPECIALLY IF TAKING PAIN MEDICATION OR TYLENOL Activity Full Activity/No Limits: No Activity Self Limited: Yes Pounds, do NOT lift more than: 10 Other activity limits: no heavy lifting. no strenuous activity. Acute Coronary Syndrome Inclusion Criteria At DC or during hospital stay patient has or had the following: ACS DIAGNOSIS No Discharge Core Measures Meds if any: Prescribed or Continued at Discharge Meds if any: NOT Prescribed or Continued at Discharge Congestive Heart Failure Inclusion Criteria At DC or during hospital stay patient has or had the following: CHF DIAGNOSIS No Discharge Core Measures Meds if any: Prescribed or Continued at Discharge Meds if any: NOT Prescribed or Continued at Discharge Cerebrovascular accident Inclusion Criteria At DC or during hospital stay patient has or had the following: CVA/TIA Diagnosis No Discharge Core Measures Meds if any: Prescribed or Continued at Discharge Meds if any: NOT Prescribed or Continued at Discharge Venous thromboembolism Inclusion Criteria VTE Diagnosis No VTE Type NONE VTE Confirmed by (Test) NONE Discharge Core Measures - Per Current guidelines, there needs to be overlap - treatment for the first 5 days of Warfarin therapy. - If discharged on Warfarin prior to 5 days of - overlap therapy, the patient will need to be - assessed for post discharge needs including - *Post discharge parental anticoagulation - *Warfarin and/or parental anticoagulation education - *Follow up date to check INR post discharge At least 5 days overlap therapy as Inpatient No Meds if any: Prescribed or Continued at Discharge Note: Overlap Therapy is Warfarin and Anticoagulant Meds if any: NOT Prescribed or Continued at Discharge
[2017-07-23] MEDS ORDERED: DOCUSATE SODIU100 M3 PO (10:23)
[2017-07-23] MEDS ORDERED: PERCOCET 5-3251 EACH PO (10:23)
[2017-07-23 14:16] VITALS: BP 140/72
[2017-07-23 22:30] VITALS: BP 132/88
[2017-07-24 07:13] VITALS: BP 116/76
--- NOTE | 2017-07-24 09:00 | PN- General Surgery ---
See Addendum Subjective Subjective: Tolerating diet. No nausea. Passing flatus and had a small bm 1-2 days ago. Anticipates discharge to home this afternoon. Objective Vital Signs and I&Os Vital Signs Date Time Temp Pulse Resp B/P B/P Pulse O2 O2 Flow FiO2 Mean Ox Delivery Rate 07/24 07 98.1 75 20 116/76 96 07/23 2230 99.0 80 20 132/88 94 Nasal 2.0L Cannula 07/23 1416 99.7 77 20 140/72 92 Intake & Output 07/24 1600 07/24 0800 07/24 0000 07/23 1600 07/23 0800 07/23 0000 Intake Total 480 480 850 960 480 Output Total 750 1000 1600 Balance -270 -520 850 -640 480 Intake, Oral 480 480 850 960 480 Output, Urine 750 1000 1600 Physical Exam: General - alert & oriented x 3. comfortable. no acute distress. Lungs - clear bilaterally. no w/r/r. Cardiac - s1s2. reg. Abdomen - soft. incisions approximated with steri strips. expected tino- incisional tenderness. Extremities - warm bilaterally. no c/c/e. calves soft and nontender b/l. Current Medications: Current Medications Sig/Ute Start time Last Medication Dose Route Stop Time Status Admin Acetaminophen 325 MG Q4P PRN 07/23 0600 AC PO Docusate Sodium 100 MG BID 07/23 1000 AC 07/24 PO 0837 Famotidine 20 MG BID 07/23 1000 AC 07/24 PO 0837 Heparin Sodium 5,000 UNIT Q8 07/20 2200 AC 07/24 (Porcine) SC 0522 Morphine Sulfate 2 MG Q4-6 PRN PRN 07/23 0815 DC 07/24 IV 0423 Ondansetron HCl 4 MG Q6-PRN PRN 07/23 0815 AC IV Oxycodone/ 1 TAB Q4P PRN 07/23 0600 AC Acetaminophen PO Oxycodone/ 2 TAB Q4P PRN 07/23 0600 AC Acetaminophen PO Patient Medication 1 ED ONE ONE 07/23 1330 DC Teaching ED 07/23 1331 Assessment/Plan Assessment/Plan This is a 62 year old male with hx hld, dvt, hx dva with left sided weakness, POD#4 s/p lap lysis of adhesions for sbo currently tolerating low fiber diet d/c iv morphine. try percocet colace bid hep sc - dvt ppx d/c home this afternoon patient seen and examined with Core Measures Venous Thromboembolism VTE Risk Factors Immobility No Mechanical VTE Prophylaxis d/t N/A MechProphylax Ordered No VTE Pharm Prophylaxis d/t NA PharmProphylax ordered
--- NOTE | 2017-07-24 09:26 | Surgical Discharge Summary ---
Visit Information Visit Dates Admission Date: 07/18/17 Discharge Date: 07/24/17 History of Present Illness Chief Complaint: abdominal pain Medical History Neurological: CVA EENT: NONE Cardiovascular: hyperlipidemia Respiratory: NONE Gastrointestinal: NONE Hepatic: NONE Renal: NONE Musculoskeletal: rheumatoid arthritis Psychiatric: NONE Endocrine: NONE Blood Disorders: NONE Cancer(s): NONE History of MRSA: No History of VRE: No History of CDIFF: No Isolation History: Standard Surgical History Pertinent Surgical History: LEFT INGUINAL HERNIA, laparoscopic lysis adhesions Psychosocial History Who Do You Live With? Mother Services at Home: None What is Your Primary Language? Syriac ETOH Use: occasional use Review of Systems: see hp Hospital Course Course Attending Physician: Aj So MD Primary Care Physician: Modesto Gutierrez MD Hospital Course: Admitted to surgical service for medical managment of intestinal obstruction. He was taken to the OR the following day after unresolution of obstruction. Laparoscopic lysis of adhesion performed. see op note. Postoperatively he improved with return of bowel function. his diet was advanced and he was discharged home. 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 Medications at Discharge Discharge Medications: Continue taking these medications: Aspirin (Ecotrin*) 325 MG TABLET.DR 1 Tablet ORAL DAILY Ranitidine (Ranitidine HCl) (Unknown Strength) TABLET Unknown Dose ORAL DAILY Cetirizine HCl (Zyrtec) 10 MG CAPSULE 1 Capsule ORAL DAILY Cholecalciferol (Vitamin D3) (Vitamin D) (Unknown Strength) TABLET Unknown Dose ORAL DAILY Testosterone (Testim) 50 MG/5 GRAM (1 %) GEL..GRAM. 1 Application On the skin DAILY Simvastatin (Zocor*) (Unknown Strength) TABLET Unknown Dose ORAL Every night Start taking the following new medications: Docusate Sodium (Docusate Sodium) 100 MG CAPSULE 100 Milligram ORAL TWICE DAILY as needed for constipation Qty = 60 No Refills Instructions: hold for loose stools / diarrhea Oxycodone HCl/Acetaminophen (Percocet 5-325 MG Tablet) 5 MG-325 MG TABLET 1-2 Tablet ORAL EVERY 4-6 HOURS NEEDED as needed for pain control Qty = 36 No Refills Instructions: tylenol alternatively. do not combine with percocet. Copies To: Matt ROBLES,Modesto Harrison
== END 2017-07-24 13:49 | DRG 336 ==
LOC: ERH 13:51 → ERHI 19:36 → 2NB 19:36 → ENRESERV 22:23 → 2NB 23:57 → ENTRNSPT 07-20 16:40 → CMPTRNSPT 07-20 17:10 → ENPENDDIS 07-24 08:47 → ENTRNSPT 07-24 13:31 → EDTRNSPTSTS 07-24 13:35 → CMPTRNSPT 07-24 13:46 → 2NB 07-24 13:49
PROVIDERS: Physician Assistant Medical; Physician Assistant Surgical
PROC: 0DN84ZZ Release Small Intestine, Percutaneous Endoscopic Approach (ICD-10-PCS; principal; 2017-07-20)
PROC: 3E0T3BZ Introduction of Anesthetic Agent into Peripheral Nerves and Plexi, Percutaneous Approach (ICD-10-PCS; 2017-07-20)
DX: K56.50 Intestinal adhesions [bands], unspecified as to partial versus complete obstruction (principal); I69.354 Hemiplegia and hemiparesis following cerebral infarction affecting left non-dominant side; E78.00 Pure hypercholesterolemia, unspecified; E78.5 Hyperlipidemia, unspecified; M06.9 Rheumatoid arthritis, unspecified; I10 Essential (primary) hypertension; Z86.718 Personal history of other venous thrombosis and embolism
CPT/HCPCS: 2NBP; 36415; 71045; 74021; 74177; 81003; 82436; 87086; 93005; 93010; 96374; 96375; C9399; G0480; J0131; J1100; J1200; J1644; J2405; J7120